=== PATIENT | male | born 1960 | race Caucasian/White ===

== ENCOUNTER → 2024-03-08 13:30 | Outpatient (CLI) | payer OTHER, SELFPAY ==
--- NOTE | 2024-03-08 13:36 | DI.RAD.S_ITS ---
PROCEDURE: XR KNEE RT 4V INDICATIONS: KNEE PAIN TECHNIQUE: 3 views of the knee were acquired. COMPARISON: None. FINDINGS: Bones: No fractures or dislocations. No suspicious bony lesions. Patellofemoral and medial compartmental joint space narrowing. Small suprapatellar enthesophyte or ossicle. Soft tissues: No joint effusion. No suspicious soft tissue calcifications. 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 on 03/08/2024 at 19:52
== END ==
PROVIDERS: PCP Registered Nurse; Referring Provider Registered Nurse; Visit Provider Registered Nurse
DX: S83.011A Lateral subluxation of right patella, initial encounter (principal); M25.461 Effusion, right knee
CPT/HCPCS: 73564